=== PATIENT | male | born 1995 | race Two or more races ===

== ENCOUNTER 2016-07-17 18:36 | Emergency (ER) | payer BC, OTHER ==
[~2016-07-17] VITALS: Ht 182.9 cm; Wt 133.8 kg
[2016-07-17 19:21] VITALS: BP 155/80
[2016-07-17] MEDS ORDERED: IBUPROFEN 600 MG TAB PO ONE (22:45)
== END 2016-07-17 22:48 | disposition home or self-care (01) ==
LOC: ER 18:41
DX: S62.356A Nondisplaced fracture of shaft of fifth metacarpal bone, right hand, initial encounter for closed fracture (principal); W18.39XA Other fall on same level, initial encounter; Y93.89 Activity, other specified; Y99.0 Civilian activity done for income or pay; Y92.89 Other specified places as the place of occurrence of the external cause
CPT/HCPCS: 29125; 73100; 73110; 73130

== ENCOUNTER 2023-07-05 21:35 | Emergency (ER) | payer MEDICAID, OTHER ==
[~2023-07-05] VITALS: Ht 177.8 cm; Wt 190.9 kg
[2023-07-06 06:45] VITALS: BP 167/97; PULSE 110; RESP 20; TEMP 98.3; O2SAT 99
== END 2023-07-06 00:05 | disposition home or self-care (01) ==
LOC: ER 21:35
DX: R51.9 Headache, unspecified (principal); Y04.2XXA Assault by strike against or bumped into by another person, initial encounter; Y93.89 Activity, other specified; Y92.69 Other specified industrial and construction area as the place of occurrence of the external cause; Y99.8 Other external cause status

== ENCOUNTER 2023-07-10 10:22 | Emergency (ER) | payer OTHER ==
[~2023-07-10] VITALS: Ht 177.8 cm; Wt 192.0 kg
[2023-07-10] MEDS ORDERED: traMADol HCL 50 MG TAB PO ONE (12:30)
[2023-07-10 13:20] VITALS: PULSE 90; RESP 20; O2SAT 98
[2023-07-10 14:37] VITALS: BP 158/80; PULSE 95; RESP 18; TEMP 98.1; O2SAT 98
[2023-07-10] MEDS ORDERED: TRAM50TA2 PO (14:46)
== END 2023-07-10 14:40 | disposition home or self-care (01) ==
LOC: ER 10:22
DX: S20.211A Contusion of right front wall of thorax, initial encounter (principal); S80.01XA Contusion of right knee, initial encounter; S09.8XXA Other specified injuries of head, initial encounter; F17.210 Nicotine dependence, cigarettes, uncomplicated; Y04.2XXA Assault by strike against or bumped into by another person, initial encounter; Y93.89 Activity, other specified; Y92.89 Other specified places as the place of occurrence of the external cause; Y99.8 Other external cause status
CPT/HCPCS: 70450; 71045; 73560